=== PATIENT | female | born 2005 | race Caucasian/White ===

== ENCOUNTER 2023-03-31 03:10 | Emergency (ER) | payer OTHER ==
[2023-03-31] MEDS ORDERED: ONDANSETRON 4 MG/2 ML VIAL IVP STA (03:48)
[2023-03-31] MEDS ORDERED: SODIUM CHLORIDE 0.9% 1,000 ML IV STA ×2 (03:48→04:56)
--- NOTE | 2023-03-31 03:50 | ED ---
Nausea/Vomiting/Diarrhea HPI - General Source: patient, RN notes reviewed, old records reviewed Mode of arrival: wheelchair Limitations: no limitations - History of Present Illness MD complaint: nausea, vomiting, other (Sore throat) Associated Abdominal Pain: No Severity: severe Severity scale (1-10): 10 Consistency: constant Improves with: none Worsens with: none Context: recent antibiotic use Associated Symptoms: malaise, nausea/vomiting, weakness <Shyam Harkins - Last Filed: 03/31/23 06:28> <Otis Macias - Last Filed: 03/31/23 09:44> - General Chief complaint: Nausea/Vomiting/Diarrhea Stated complaint: Vomiting Time Seen by Provider: 03/31/23 03:18 - History of Present Illness Initial comments: This is a 17-year-old female to the emergency department for evaluation of a sore throat with recently seen tonsillar stones coming in with severe shortness of significant nausea and vomiting. Patient is intractable nausea vomiting on arrival to the ER which is occurred throughout the course of last night. Denying fevers. Patient states symptoms began which started taking antibiotics (Shyam Harkins) - Related Data Previous Rx's Medication Instructions Recorded Azithromycin [Zithromax Z Pack] 1 tab PO DIRECTED #6 tab 03/31/23 predniSONE [Deltasone] 20 mg PO DAILY 5 Days #5 tab 03/31/23 Allergies Allergy/AdvReac Type Severity Reaction Status Date / Time No Known Allergies Allergy Verified 03/31/23 03:13 Review of Systems ROS Other: All systems not noted in ROS Statement are negative. <Shyam Harkins - Last Filed: 03/31/23 06:28> ROS Other: All systems not noted in ROS Statement are negative. <Otis Macias - Last Filed: 03/31/23 09:44> ROS Statement: Those systems with pertinent positive or pertinent negative responses have been documented in the HPI. Past Medical History Past Medical History: No Reported History Additional Past Medical History / Comment(s): Adrenal Hyperplasia History of Any Multi-Drug Resistant Organisms: None Reported Past Surgical History: No Surgical Hx Reported Past Psychological History: No Psychological Hx Reported Smoking Status: Never smoker Past Alcohol Use History: None Reported Past Drug Use History: None Reported <Shyam Harkins - Last Filed: 03/31/23 06:28> General Exam Limitations: no limitations General appearance: alert, in no apparent distress, anxious Head exam: Present: atraumatic, normocephalic, normal inspection Eye exam: Present: normal appearance, PERRL, EOMI. Absent: scleral icterus, conjunctival injection, periorbital swelling ENT exam: Present: normal exam, mucous membranes moist Neck exam: Present: normal inspection. Absent: tenderness, meningismus, lymphadenopathy Respiratory exam: Present: normal lung sounds bilaterally. Absent: respiratory distress, wheezes, rales, rhonchi, stridor Cardiovascular Exam: Present: normal rhythm, tachycardia, normal heart sounds. Absent: systolic murmur, diastolic murmur, rubs, gallop, clicks GI/Abdominal exam: Present: soft, normal bowel sounds. Absent: distended, tenderness, guarding, rebound, rigid Extremities exam: Present: normal inspection, full ROM, normal capillary refill. Absent: tenderness, pedal edema, joint swelling, calf tenderness Back exam: Present: normal inspection Neurological exam: Present: alert, oriented X3, CN II-XII intact Psychiatric exam: Present: normal affect, normal mood Skin exam: Present: warm, dry, intact, normal color. Absent: rash <Shyam Harkins - Last Filed: 03/31/23 06:28> Course <Shyam Harkins - Last Filed: 03/31/23 06:28> Vital Signs 03/31/23 03/31/23 03/31/23 03:14 04:42 05:49 Temperature 98 F Pulse Rate 134 H 121 H 111 H Respiratory 18 19 17 Rate Blood Pressure 111/75 101/79 O2 Sat by Pulse 98 97 98 Oximetry 03/31/23 03/31/23 07:06 07:39 Temperature 99.8 F H Pulse Rate 110 H 117 H Respiratory 18 20 Rate Blood Pressure 102/65 98/42 O2 Sat by Pulse 98 97 Oximetry - Reevaluation(s) Reevaluation #1: 03/31/23 06:28 Medical records reviewed (Shyam Harkins) Reevaluation #4: 03/31/23 06:28 Was pt. sent in by a medical professional or institution (, PA, PLATE SENSITIZER, urgent care, hospital, or usp...) When possible be specific @ -no Did you speak to anyone other than the patient for history (EMS, parent, family, police, friend...)? What history was obtained from this source @ -no Did you review nursing and triage notes (agree or disagree)? Why? @ -agree Are old charts reviewed (outside hosp., previous admission, EMS record, old EKG, old radiological studies, urgent care reports/EKG's, usp records)? Report findings @ -yes Differential Diagnosis (chest pain, altered mental status, abdominal pain women, abdominal pain men, vaginal bleeding, weakness, fever, dyspnea, syncope, headache, dizziness, GI bleed, back pain, seizure, CVA, palpatations, mental health, musculoskeletal)? @ -prior EKG interpreted by me (3pts min.). @ -yes X-rays interpreted by me (1pt min.). @ -yes CT interpreted by me (1pt min.). @ -no U/S interpreted by me (1pt. min.). @ -no What testing was considered but not performed or refused? (CT, X-rays, U/S, labs)? Why? @ -none What meds were considered but not given or refused? Why? @ -none Did you discuss the management of the patient with other professionals (professionals i.e. , PA, PLATE SENSITIZER, lab, RT, psych nurse, manager social work, staff nurse, teacher, executive vice president and chief operating officer, director case management)? Give summary @ -no Was smoking cessation discussed for >3mins.? @ -no Was critical care preformed (if so, how long)? @ -no Were there social determinants of health that impacted care today? How? (Homelessness, low income, unemployed, alcoholism, drug addiction, transportation, low edu. Level, literacy, decrease access to med. care, retirement, rehab)? @ -none Was there de-escalation of care discussed even if they declined (Discuss DNR or withdrawal of care, Hospice)? DNR status @ -no What co-morbidities impacted this encounter? (DM, HTN, Smoking, COPD, CAD, Cancer, CVA, ARF, Chemo, Hep., AIDS, mental health diagnosis, sleep apnea, m orbid obesity)? @ -none Was patient admitted / discharged? Hospital course, mention meds given and route, prescriptions, significant lab abnormalities, going to OR and other pertinent info. @ - Undiagnosed new problem with uncertain prognosis? @ -no Drug Therapy requiring intensive monitoring for toxicity (Heparin, Nitro, Insulin, Cardizem)? @ -no Were any procedures done? @ -no Diagnosis/symptom? @ - Acute, or Chronic, or Acute on Chronic? @ -Acute Uncomplicated (without systemic symptoms) or Complicated (systemic symptoms)? @ -Complicated Side effects of treatment? @ -no Exacerbation, Progression, or Severe Exacerbation? @ -exacerbation Poses a threat to life or bodily function? How? (Chest pain, USA, AR, pneumonia, PE, COPD, DKA, ARF, appy, cholecystitis, CVA, Diverticulitis, Homicidal, Suicidal, threat to staff... and all critical care pts) @ -yes (Shyam Harkins) Medical Decision Making - Lab Data Result diagrams: 03/31/23 04:02 03/31/23 04:02 <Shyam Harkins - Last Filed: 03/31/23 06:28> - Lab Data Result diagrams: 03/31/23 04:02 03/31/23 04:02 <Otis Macias - Last Filed: 03/31/23 09:44> - Medical Decision Making Patient is a 17-year-old female who presents emergency Department with sore throat as well as one day of nausea and vomiting. Patient has had low-grade fevers, nausea and vomiting for a few days associated with the symptoms. States it seems to have gotten worse after the amoxicillin. Presents for further evaluation of this time. Only acute complaint is body aches, as well as sore throat. Presents for further evaluation. Patient was signed out to me pending results of CT imaging. Labs so far do reveal evidence of an infection however both me and the prior provider both agree that it appears patient is extremely dehydrated as she does have an elevated white blood cell count, as well as 4+ ketones in her urine. Viral swabs are negative. Leukocytosis likely multifactorial, consisting of both a recent infection as well as the dehydration from the nausea and vomiting. Patient has a low-grade fever and is tachycardic. His pending results of imaging. CT imaging is interpreted by myself reveals no evidence of peritonsillar abscess or other severe infection. Patient does have bilateral enlargement of the tonsils suggestive of tonsillitis. Remainder the patient's labs including viral swabs are negative. Patient has received 2-1/2 L fluid bolus, Toradol, Decadron, Unasyn. I did discuss with the patient and she endorses feelings him with improved at this time. We discussed her workup. I think it is okay for the trial attempted going on the believe that most of her symptoms and la boratory abnormalities are likely related to her persistent nausea and vomiting. She is tolerating oral intake at this time. She will be discharged home with additional steroids as well as changing her antibiotic to azithromycin over concern for possible ALLERGIC reaction amoxicillin. Patient is feeling improved. Did discuss admission versus discharge and patient was amenable to attempting discharge home and she is tolerating oral intake and we will switch her antibiotic if that is the primary concern at this time. All other symptoms started when she started the amoxicillin. She is young and healthy otherwise, I believe this is a reasonable course of action. She was in agreement this plan. She was in agreement this plan. Strict return precautions were discussed. I will provide the patient with a prescription for prednisone, azithromycin. I instructed the patient to follow up with their PCP in the next 1-3 days. I provided contact information for follow up with ENT. I explained that the patient should return to the emergency department if they experience any wors ening symptoms. Strict return precautions were discussed with the patient. The patient expressed understanding of these instructions. I answered all questions that the patient had. The patient was discharged home in fair condition with their prescriptions and follow up information. Diagnosis/symptom? @ -Pharyngitis, dehydration, nausea and vomiting Acute, or Chronic, or Acute on Chronic? @ -Acute Uncomplicated (without systemic symptoms) or Complicated (systemic symptoms)? @ -Complicated Side effects of treatment? @ -none Exacerbation, Progression, or Severe Exacerbation] @ -no Poses a threat to life or bodily function? @ -Unlikely (Otis Macias) - Lab Data Lab Results 03/31/23 03/31/23 03/31/23 Range/Units 04:02 04:02 04:02 WBC 25.6 H (4.0-11.0) k/uL RBC 4.85 (3.80-5.40) m/uL Hgb 15.0 (11.4-16.0) gm/dL Hct 45.7 (34.0-46.0) % MCV 94.3 (80.0-100.0) fL MCH 31.0 (25.0-35.0) pg MCHC 32.9 (31.0-37.0) g/dL RDW 11.9 (11.5-15.5) % Plt Count 293 (150-450) k/uL MPV 7.5 Neutrophils % 85 % Lymphocytes % 10 % Monocytes % 4 % Eosinophils % 1 % Basophils % 0 % Neutrophils # 21.7 H (1.3-7.7) k/uL Lymphocytes # 2.5 (1.0-4.8) k/uL Monocytes # 1.0 (0-1.0) k/uL Eosinophils # 0.2 (0-0.7) k/uL Basophils # 0.1 (0-0.2) k/uL Sodium 134 L (137-145) mmol/L Potassium 3.9 (3.5-5.1) mmol/L Chloride 100 (98-107) mmol/L Carbon Dioxide 18 L (22-30) mmol/L Anion Gap 16 mmol/L BUN 7 (7-17) mg/dL Creatinine 0.59 (0.52-1.04) mg/dL Est GFR (CKD-EPI)AfAm >90 (>60 ml/min/1.73 sqM) Est GFR (CKD-EPI)NonAf >90 (>60 ml/min/1.73 sqM) Glucose 91 (74-99) mg/dL Plasma Lactic Acid Kev (0.7-2.0) mmol/L Calcium 9.6 (8.4-10.2) mg/dL Phosphorus 2.1 L (2.5-4.5) mg/dL Magnesium 1.7 (1.6-2.3) mg/dL Total Bilirubin 0.7 (0.2-1.3) mg/dL AST 38 H (14-36) U/L ALT 33 (4-34) U/L Alkaline Phosphatase 76 (38-126) U/L C-Reactive Protein (<1.0) mg/dL Total Protein 7.5 (6.3-8.2) g/dL Albumin 4.4 (3.5-5.0) g/dL Lipase 47 (23-300) U/L Urine Color Yellow Urine Appearance Cloudy H (Clear) Urine pH 6.5 (5.0-8.0) Ur Specific [place] 1.029 (1.001-1.035) Urine Protein 1+ H (Negative) Urine Glucose (UA) Negative (Negative) Urine Ketones 4+ H (Negative) Urine Blood Small H (Negative) Urine Nitrite Negative (Negative) Urine Bilirubin Negative (Negative) Urine Urobilinogen 3.0 (<2.0) mg/dL Ur Leukocyte Esterase Small H (Negative) Urine RBC 15 H (0-5) /hpf Urine WBC 10 H (0-5) /hpf Ur Squamous Epith Cells 9 H (0-4) /hpf Urine Bacteria Many H (None) /hpf Urine Mucus Moderate H (None) /hpf Influenza Type A (PCR) (Not Detectd) Influenza Type B (PCR) (Not Detectd) RSV (PCR) (Not Detectd) SARS-CoV-2 (PCR) (Not Detectd) 03/31/23 03/31/23 03/31/23 Range/Units 04:02 04:02 06:21 WBC (4.0-11.0) k/uL RBC (3.80-5.40) m/uL Hgb (11.4-16.0) gm/dL Hct (34.0-46.0) % MCV (80.0-100.0) fL MCH (25.0-35.0) pg MCHC (31.0-37.0) g/dL RDW (11.5-15.5) % Plt Count (150-450) k/uL MPV Neutrophils % % Lymphocytes % % Monocytes % % Eosinophils % % Basophils % % Neutrophils # (1.3-7.7) k/uL Lymphocytes # (1.0-4.8) k/uL Monocytes # (0-1.0) k/uL Eosinophils # (0-0.7) k/uL Basophils # (0-0.2) k/uL Sodium (137-145) mmol/L Potassium (3.5-5.1) mmol/L Chloride (98-107) mmol/L Carbon Dioxide (22-30) mmol/L Anion Gap mmol/L BUN (7-17) mg/dL Creatinine (0.52-1.04) mg/dL Est GFR (CKD-EPI)AfAm (>60 ml/min/1.73 sqM) Est GFR (CKD-EPI)NonAf (>60 ml/min/1.73 sqM) Glucose (74-99) mg/dL Plasma Lactic Acid Kev 1.6 (0.7-2.0) mmol/L Calcium (8.4-10.2) mg/dL Phosphorus (2.5-4.5) mg/dL Magnesium (1.6-2.3) mg/dL Total Bilirubin (0.2-1.3) mg/dL AST (14-36) U/L ALT (4-34) U/L Alkaline Phosphatase (38-126) U/L C-Reactive Protein 34.1 H (<1.0) mg/dL Total Protein (6.3-8.2) g/dL Albumin (3.5-5.0) g/dL Lipase (23-300) U/L Urine Color Urine Appearance (Clear) Urine pH (5.0-8.0) Ur Specific [place] (1.001-1.035) Urine Protein (Negative) Urine Glucose (UA) (Negative) Urine Ketones (Negative) Urine Blood (Negative) Urine Nitrite (Negative) Urine Bilirubin (Negative) Urine Urobilinogen (<2.0) mg/dL Ur Leukocyte Esterase (Negative) Urine RBC (0-5) /hpf Urine WBC (0-5) /hpf Ur Squamous Epith Cells (0-4) /hpf Urine Bacteria (None) /hpf Urine Mucus (None) /hpf Influenza Type A (PCR) Not Detected (Not Detectd) Influenza Type B (PCR) Not Detected (Not Detectd) RSV (PCR) Not Detected (Not Detectd) SARS-CoV-2 (PCR) Not Detected (Not Detectd) Disposition <Shyam Harkins - Last Filed: 03/31/23 06:28> Is patient prescribed a controlled substance at d/c from ED?: No Time of Disposition: 09:00 <Otis Macias - Last Filed: 03/31/23 09:44> Clinical Impression: Pharyngitis, Dehydration, Nausea and vomiting Disposition: HOME SELF-CARE Condition: Fair Instructions (If sedation given, give patient instructions): Pharyngitis (ED), Acute Nausea and Vomiting (ED) Prescriptions: predniSONE [Deltasone] 20 mg PO DAILY 5 Days #5 tab Azithromycin [Zithromax Z Pack] 1 tab PO DIRECTED #6 tab Referrals: Prashanth Bundy DO [Primary Care Provider] - 1-2 days Naldo Pandya MD [STAFF PHYSICIAN] - 1-2 days
[2023-03-31 04:06] LABS: Basophils # (A) 0.1 k/uL (0-0.2); Basophils % (A) 0 %; Eosinophils # (A) 0.2 k/uL (0-0.7); Eosinophils % (A) 1 %; HCT 45.7 % (34.0-46.0); Lymphocytes # (A) 2.5 k/uL (1.0-4.8); Lymphocytes % (A) 10 %; MCHC 32.9 g/dL (31.0-37.0); MCV 94.3 fL (80.0-100.0); Mean Platelet Volume 7.5; Monocytes % (A) 4 %; Neutrophils # (A) 21.7 k/uL (1.3-7.7); Neutrophils % (A) 85 %; Platelet Count 293 k/uL (150-450); RBC 4.85 m/uL (3.80-5.40); RDW 11.9 % (11.5-15.5); WBC 25.6 k/uL (4.0-11.0)
[2023-03-31 04:12] LABS: Appearance,Urine Cloudy (Clear); Bacteria,Urine Many /hpf; Bilirubin,Urine Negative (Negative); Blood,Urine Small (Negative); Color,Urine Yellow; Glucose,Urine (UA) Negative (Negative); Ketones,Urine 4+ (Negative); Leukocyte Esterase,Urine Small (Negative); Mucus,Urine Moderate /hpf; Nitrite,Urine Negative (Negative); PH, Urine 6.5 (5.0-8.0); Protein,Urine 1+ (Negative); RBC,Urine 15 /hpf (0-5); Specific Gravity,Urine 1.029 (1.001-1.035); Squamous Epithelial Cell,Urine 9 /hpf (0-4); WBC,Urine 10 /hpf (0-5)
[2023-03-31] MEDS ORDERED: SODIUM CHLORIDE 0.9% 500 ML 500 ML IV STA (04:56)
[2023-03-31] MEDS ORDERED: AMPICILLIN-SULBACTAM 3 GM in SODIUM CHLORIDE 0.9% 100 ML IVPB STA (04:56)
[2023-03-31] MEDS ORDERED: PROCHLORPERAZINE INJ 10 MG/2 ML VIAL IVP STA (04:57)
[2023-03-31] MEDS ORDERED: LORazepam 2 MG/ML INJ IV STA (04:57)
[2023-03-31 05:26] LABS: ALT 33 U/L (4-34); AST 38 U/L (14-36); African American GFR (CKD) >90 (>60 ml/min/1.73 sqM); Albumin 4.4 g/dL (3.5-5.0); Alkaline Phosphatase 76 U/L (38-126); Anion Gap 16 mmol/L; Blood Urea Nitrogen 7 mg/dL (7-17); Calcium 9.6 mg/dL (8.4-10.2); Carbon Dioxide 18 mmol/L (22-30); Chloride 100 mmol/L (98-107); Glucose 91 mg/dL (74-99); Lipase 47 U/L (23-300); Magnesium 1.7 mg/dL (1.6-2.3); Non-African American GFR(CKD) >90 (>60 ml/min/1.73 sqM); Phosphorus 2.1 mg/dL (2.5-4.5); Potassium 3.9 mmol/L (3.5-5.1); Sodium 134 mmol/L (137-145); Total Bilirubin 0.7 mg/dL (0.2-1.3); Total Protein 7.5 g/dL (6.3-8.2)
[2023-03-31] MEDS ORDERED: KETOROLAC 15 MG/ML 1 ML VIAL IVP STA (06:20)
[2023-03-31] MEDS ORDERED: DEXAMETHASONE SOD PHOSPHATE 10 MG/ML 1 ML VIAL IVP STA (06:20)
[2023-03-31] MEDS ORDERED: ACETAMINOPHEN IV (For NPO) 1,000 MG in EMPTY BAG 1 BAG IVPB ONE (06:30)
--- NOTE | 2023-03-31 07:17 | CT ---
EXAM: CT Neck With Intravenous Contrast CLINICAL HISTORY: Pain, edema. TECHNIQUE: Axial computed tomography images of the neck with intravenous contrast. CTDI is 6.3 mGy and DLP is 173.3 mGy-cm. This CT exam was performed using one or more of the following dose reduction techniques: automated exposure control, adjustment of the mA and/or kV according to patient size, and/or use of iterative reconstruction technique. COMPARISON: No relevant prior studies available. FINDINGS: There is mild symmetric enlargement of the palatine tonsils, without evidence of loculated fluid collection or peritonsillar infiltration. No airway deviation. No soft tissue gas. No vascular abnormality. No evidence of lymphadenopathy. No soft tissue mass. The parotid, submandibular and thyroid glands are within normal limits. Limited evaluation of the lung apices shows no gross abnormality. No acute osseous abnormality. No prevertebral/retropharyngeal soft tissue swelling or edema. IMPRESSION: Mild symmetric enlargement of the palatine tonsils, which may be associated with low-grade or chronic tonsillitis. No loculated fluid collection to suggest an abscess. No soft tissue gas.
[2023-03-31] MEDS ORDERED: ACETAMINOPHEN TAB 500 MG TAB PO STA (07:33)
[2023-03-31] MEDS ORDERED: ONDANSETRON 4 MG ODT STARTER PACK 2 TAB BTL PO STA (08:08)
[2023-03-31 09:57] VITALS: BP 100/57; PULSE 102; RESP 18; TEMP 98.1
== END 2023-03-31 09:47 | disposition home or self-care (01) ==
LOC: EC 03:10
DX: J02.9 Acute pharyngitis, unspecified (principal); E86.0 Dehydration; J35.1 Hypertrophy of tonsils; Z20.822 Contact with and (suspected) exposure to COVID-19
CPT/HCPCS: 99284 ×2; 96365 ×2; 96366 ×2; 96375 ×2; 96361 ×2; 36415; 80053; 83605; 83690; 83735; 84100; 85025; 86140; 81001; 87040; 87636; 70491; J2060; J0780; J1100; J2405; J0295; J1885; S0119; Q9967